=== PATIENT | female | born 1935 | race Caucasian/White ===

== ENCOUNTER 2017-02-06 10:29 | Outpatient (CLI) | payer MEDICARE, OTHER ==
--- NOTE | 2017-02-06 13:05 | RAD ---
TWO VIEWS OF THE CHEST: 02/06/2017 HISTORY: Dyspnea. COMPARISON: None. FINDINGS: There is extensive interstitial opacity in the bilateral perihilar regions in both lung bases, as wel l as the lateral aspect of the bilateral mid lung zones, left greater than right. No pneumothorax is seen. There is no pleural fluid appreciated. There is atherosclerotic calcification of the abdomin al aorta. Lung volumes appear symmetric and relatively normal. IMPRESSION: There is extensive interstitial opacity in the bilateral perihilar regions in both lung bases, with c onfluent linear opacity within the lateral aspect of the bilateral mid lung zones. There may be a mi ld degree alveolar opacity/ground glass opacity within the lateral aspect of both mid lung zones. Th is could be better assessed via CT examination, as clinically indicated. POS: [facility]
== END 2017-02-06 10:30 | disposition home or self-care (01) ==
LOC: RAD 10:29
PROVIDERS: ATTEND Internal Medicine Pulmonary Disease
DX: R06.00 Dyspnea, unspecified (principal); J98.4 Other disorders of lung
CPT/HCPCS: 71020